=== PATIENT | male | born 1960 | race Caucasian/White ===

== ENCOUNTER → 2018-08-29 | Outpatient (REF) | payer OTHER | LOC: M LAB LCGH 09:15 | PROVIDERS: ATTEND Surgery | DX: K92.1 Melena (principal) ==

== ENCOUNTER → 2023-02-02 | Outpatient (REF) | payer OTHER | LOC: M SFHCPLAZ 11:12 | PROVIDERS: ATTEND Nurse Practitioner Family | DX: Z53.9 Procedure and treatment not carried out, unspecified reason (principal); B35.1 Tinea unguium ==